=== PATIENT | female | born 1940 | race Caucasian/White ===

== ENCOUNTER → 2016-08-29 | Outpatient (CLI) | payer MEDICARE, BC ==
[~2016-08-29] MED LIST: AMOXICILLIN 8751 TAB PO; ASPIRIN; ASPIRIN E.C. 8181 MG PO; BETAPACE 80MG80 MG PO; BUFFERED ASPIRIN; CALCIUM CARBON500 M1 PO; CENTRUM SILVER1 TA1 PO; CEPHALEXIN500 M1 PO; COUMADIN 22.5 MG/TAB PO; COUMADIN 5MG5 MG/TAB PO; FISH OIL1 IU PO; FISH OIL1000 MG PO; FLAGYL500 MG PO; K-DUR 2020 MEQ PO; LASIX 20MG TABL20 MG PO; LEVAQUIN 5500 MG/TA1 PO; LISINOPRIL10 MG PO; LOPRESSOR100 MG PO; LORTAB 5/500 501 TAB PO; PREDNISONE20 MG PO; PRINIVIL10 MG PO; RT ALBUTER2.5 MG/0.5 IH; SOTALOL; SUP; WARFARIN SOD5 MG PO; ZOCOR; ZOCOR 40MG40 MG PO
== END ==
LOC: MC.RAD 11:04
DX: Z12.31 Encounter for screening mammogram for malignant neoplasm of breast (principal)

== ENCOUNTER 2017-09-26 12:15 | Observation (INO) | payer MEDICARE, BC ==
[~2017-09-26] VITALS: Ht 157.5 cm; Wt 88.0 kg
[2017-09-26 13:04] LABS: BASO # 0.1 (0.0-0.2); BASO % 0.8 % (0.0-2.0); EOS # 0.2 (0.0-0.7); EOS % 2.7 % (0-4.0); GRAN # 3.6 (1.4-6.5); GRAN % 59.9 % (42.2-75.2); HEMATOCRIT 43.1 % (37.0-47.0); HEMOGLOBIN 14.2 g/dl (12.5-16.0); LYMPH # 1.7 (1.2-3.4); LYMPH % 28.4 % (20.0-51.0); MEAN CELL VOLUME 94 fl (80.0-100.0); MEAN CORPUSCULAR HEMOGLOBIN 31 pg (27.0-31.0); MEAN CORPUSCULAR HGB CONC 33 g/dl (33.0-37.0); MEAN PLATELET VOLUME 11.1 fl (7.4-10.4); MONO # 0.5 (0.1-0.6); PLATELET COUNT 220 K/mm3 (130-400); RED BLOOD COUNT 4.59 M/mm3 (4.10-5.30); REDCELL DISTRIBUTION WIDTH-CV 13.6 % (11.5-14.5)
[2017-09-26 13:10] LABS: INR 1.6 (0.8-3.0); PROTHROMBIN TIME 18.4 SECONDS (9.7-12.8)
[2017-09-26 13:17] LABS: ALBUMIN 3.9 gm/dL (3.5-5.0); BILIRUBIN,TOTAL 0.4 mg/dL (0.0-1.0); C-REACTIVE PROTEIN 1.1 mg/dL (0.0-0.9); CREATININE, serum 0.94 mg/dL (0.52-1.25); POTASSIUM 4.1 mmol/L (3.4-5.0); TOTAL PROTEIN 7.2 gm/dL (6.4-8.2)
[2017-09-26 17:41] VITALS: BP 179/72; PULSE 51; TEMP 98.3
[2017-09-26 20:03] VITALS: BP 152/59; PULSE 51; TEMP 98.2
[2017-09-26 23:49] VITALS: BP 114/51; PULSE 49; TEMP 97.9
[2017-09-27 03:32] VITALS: BP 133/65; PULSE 50; TEMP 98.4
[2017-09-27 07:04] LABS: TSH w REFLEX 6.15 uIU/mL (0.465-4.680)
[2017-09-27 07:15] VITALS: BP 128/78; PULSE 52; TEMP 98.4
[2017-09-27 11:30] VITALS: BP 138/67; PULSE 50; TEMP 98.5
[2017-09-27] MEDS ORDERED: XARELTO20 MG PO (13:10)
[2017-09-27] MEDS ORDERED: ZESTRIL 10MG10 MG PO (13:12)
== END 2017-09-27 14:37 | disposition home or self-care (01) ==
LOC: COL.ER 12:15 → MEDICAL 15:14
PROVIDERS: Family Medicine; Internal Medicine
DX: G45.9 Transient cerebral ischemic attack, unspecified (principal); I48.0 Paroxysmal atrial fibrillation; Z79.01 Long term (current) use of anticoagulants; I10 Essential (primary) hypertension; E78.5 Hyperlipidemia, unspecified; Z87.891 Personal history of nicotine dependence; Z88.2 Allergy status to sulfonamides; Z88.8 Allergy status to other drugs, medicaments and biological substances; Z88.6 Allergy status to analgesic agent; Z91.041 Radiographic dye allergy status; G50.0 Trigeminal neuralgia; Z95.0 Presence of cardiac pacemaker; Z80.1 Family history of malignant neoplasm of trachea, bronchus and lung
CPT/HCPCS: G0378

== ENCOUNTER → 2017-11-22 | Outpatient (CLI) | payer MEDICARE, BC ==
[~2017-11-22] MED LIST changes: +XARELTO20 MG PO; +ZESTRIL 10MG10 MG PO
== END ==
LOC: MC.RAD 10:07
DX: Z12.31 Encounter for screening mammogram for malignant neoplasm of breast (principal); N64.89 Other specified disorders of breast

== ENCOUNTER → 2018-11-28 | Outpatient (CLI) | payer MEDICARE, BC | LOC: MC.RAD 11:15 | DX: Z12.31 Encounter for screening mammogram for malignant neoplasm of breast (principal) ==

== ENCOUNTER 2019-02-14 14:58 | Emergency (ER) | payer MEDICARE, BC ==
[~2019-02-14] VITALS: Ht 154.9 cm; Wt 77.3 kg
[2019-02-14 15:30] VITALS: TEMP 98.7
[2019-02-14 16:55] LABS: BASO % 0.4 % (0.0-2.0); EOS # 0.1 (0.0-0.7); EOS % 0.6 % (0-4.0); GRAN # 7.7 (1.4-6.5); HEMOGLOBIN 14.6 g/dl (12.5-16.0); LYMPH # 1.7 (1.2-3.4); LYMPH % 15.7 % (20.0-51.0); MEAN CELL VOLUME 91 fl (80.0-100.0); MEAN CORPUSCULAR HEMOGLOBIN 31 pg (27.0-31.0); MEAN CORPUSCULAR HGB CONC 34 g/dl (33.0-37.0); MEAN PLATELET VOLUME 10.8 fl (7.4-10.4); MONO # 1.1 (0.1-0.6); MONO % 9.9 % (1.7-9.3); PLATELET COUNT 245 K/mm3 (130-400); RED BLOOD COUNT 4.71 M/mm3 (4.10-5.30); REDCELL DISTRIBUTION WIDTH-CV 13.7 % (11.5-14.5)
[2019-02-14 17:07] LABS: ALANINE AMINOTRANSFERASE 67 U/L (9-52); ALBUMIN 3.9 gm/dL (3.5-5.0); ALKALINE PHOSPHATASE 49 U/L (50-136); ANION GAP 9 mmol/L (7-16); AST,SGOT 69 U/L (15-37); BILIRUBIN,TOTAL 0.5 mg/dL (0.0-1.0); BLOOD UREA NITROGEN 11 mg/dL (7-17); C-REACTIVE PROTEIN 7.6 mg/dL (0.0-0.9); CALCIUM 9.4 mg/dL (8.4-10.2); CARBON DIOXIDE 29 mmol/L (22-30); CHLORIDE 100 mmol/L (98-107); CREATININE, serum 0.83 (0.52-1.25); GLUCOSE 107 mg/dL (74-106); POTASSIUM 4.5 mmol/L (3.4-5.0); SODIUM 137 mmol/L (137-145); TOTAL PROTEIN 7.4 gm/dL (6.4-8.2)
[2019-02-14 17:17] LABS: TROPONIN-I < 0.012 ng/mL (0.000-0.035)
[2019-02-14 17:38] LABS: COLLECTION METHOD CLEAN CATCH
[2019-02-14 17:52] LABS: PH 6 (5-8); URINE APPEARANCE Hazy; URINE BACTERIA None Seen /hpf; URINE BILIRUBIN Negative (NEGATIVE); URINE BLOOD Negative (NEGATIVE); URINE COLOR Yellow; URINE GLUCOSE Negative (NEGATIVE); URINE KETONE Negative (NEGATIVE); URINE LEUKOCYTE ESTERASE 2+ (NEGATIVE); URINE NITRATE Negative (NEGATIVE); URINE PROTEIN(semi-quant) Negative (NEGATIVE); URINE UROBILINOGEN Negative (NEGATIVE)
[2019-02-14] MEDS ORDERED: OMNICEF 300MG300 MG PO (19:17)
[2019-02-14] MEDS ORDERED: ZOFRAN 4MG T4 MG/TAB PO (19:18)
[2019-02-14 20:31] VITALS: BP 149/68; PULSE 67
== END 2019-02-14 20:31 | disposition home or self-care (01) ==
LOC: COL.ER 14:58
PROVIDERS: Emergency Medicine
DX: N12 Tubulo-interstitial nephritis, not specified as acute or chronic (principal); I10 Essential (primary) hypertension
CPT/HCPCS: J0696; J1200; J2405; J7030; Q9967

== ENCOUNTER → 2020-12-29 | Outpatient (CLI) | payer MEDICARE, BC ==
[~2020-12-29] MED LIST changes: +OMNICEF 300MG300 MG PO; +ZOFRAN 4MG T4 MG/TAB PO
== END ==
LOC: COL.RAD 12:53
DX: N30.21 Other chronic cystitis with hematuria (principal)

== ENCOUNTER 2021-10-08 10:04 | Emergency (ER) | payer MEDICARE, BC ==
[~2021-10-08] VITALS: Ht 154.9 cm; Wt 79.5 kg
[~2021-10-08 10:04] MED LIST changes: +CALCIUM 600 MG1 EAC1 PO; +CLEOCIN HC150 MG/CAP PO; +LIPITOR 40MG TA40 MG PO; +ZESTRIL 20MG TA20 MG PO
[2021-10-08 10:05] VITALS: TEMP 98.6
[2021-10-08 10:32] LABS: BASO # 0.1 K/mm3 (0.0-0.2); BASO % 0.5 % (0.0-2.0); EOS # 0.1 K/mm3 (0.0-0.7); EOS % 0.9 % (0.0-4.0); GRAN # 8.4 K/mm3 (1.4-6.5); GRAN % 84.3 % (42.2-75.2); HEMATOCRIT 39.7 % (37.0-47.0); HEMOGLOBIN 13.2 g/dl (12.5-16.0); LYMPH % 9.6 % (20.0-51.0); MEAN CELL VOLUME 92 fl (80.0-100.0); MEAN CORPUSCULAR HEMOGLOBIN 31 pg (27-31); MEAN CORPUSCULAR HGB CONC 33 g/dl (33.0-37.0); MEAN PLATELET VOLUME 10.9 fl (7.4-10.4); MONO # 0.4 K/mm3 (0.1-0.6); MONO % 4.3 % (1.7-9.3); PLATELET COUNT 251 K/mm3 (130-400); RED BLOOD COUNT 4.32 M/mm3 (4.10-5.30); REDCELL DISTRIBUTION WIDTH-CV 14.6 % (11.5-14.5)
[2021-10-08 10:40] LABS: INR 1.4 (0.8-3.0); PROTHROMBIN TIME 15.7 SECONDS (9.7-12.8)
[2021-10-08 10:42] LABS: PARTIAL THROMBOPLASTIN TIME 30.7 SECONDS (26.0-37.0)
[2021-10-08 10:50] LABS: ALBUMIN 3.5 gm/dL (3.4-4.8); BILIRUBIN,TOTAL 0.6 mg/dL (0.2-1.2); CALCIUM 9.2 mg/dL (8.4-10.2); CREATININE, serum 0.83 mg/dL (0.57-1.11); POTASSIUM 4.2 mmol/L (3.5-4.5); TOTAL PROTEIN 6.7 gm/dL (6.2-8.1)
[2021-10-08 10:56] LABS: TROPONIN-I 0.027 ng/mL (0.00-0.033)
[2021-10-08] MEDS ORDERED: ZOFRAN ODT4 MG PO (13:19)
[2021-10-08 13:23] VITALS: BP 168/89; PULSE 74
== END 2021-10-08 13:23 | disposition home or self-care (01) ==
LOC: COL.ER 10:04
PROVIDERS: Family Medicine
DX: R20.2 Paresthesia of skin (principal); R11.0 Nausea
CPT/HCPCS: J2405

== ENCOUNTER 2022-01-14 08:24 | Day surgery (SDC) | payer MEDICARE, BC ==
[~2022-01-14] VITALS: Ht 154.9 cm; Wt 77.7 kg
[2022-01-14] VITALS (9 sets, daily range): BP systolic 107–187; BP diastolic 81–96; PULSE 68–72; TEMP 98.4
[~2022-01-14 08:24] MED LIST changes: -CENTRUM SILVER1 TA1 PO; +CENTRUM SILVER1 TAB PO; +ZOFRAN ODT4 MG PO
[2022-01-14 09:36] LABS: BASO # 0.1 K/mm3 (0.0-0.2); BASO % 0.5 % (0.0-2.0); EOS # 0.2 K/mm3 (0.0-0.7); HEMATOCRIT 40.6 % (37.0-47.0); HEMOGLOBIN 13.5 g/dl (12.5-16.0); LYMPH # 1.9 K/mm3 (1.2-3.4); LYMPH % 20.6 % (20.0-51.0); MEAN CELL VOLUME 91 fl (80.0-100.0); MEAN CORPUSCULAR HEMOGLOBIN 30 pg (27-31); MEAN CORPUSCULAR HGB CONC 33 g/dl (33.0-37.0); MEAN PLATELET VOLUME 10.7 fl (7.4-10.4); MONO # 1.1 K/mm3 (0.1-0.6); MONO % 11.6 % (1.7-9.3); PLATELET COUNT 266 K/mm3 (130-400); RED BLOOD COUNT 4.46 M/mm3 (4.10-5.30); REDCELL DISTRIBUTION WIDTH-CV 14.4 % (11.5-14.5)
[2022-01-14 09:39] LABS: PROTHROMBIN TIME 11.9 SECONDS (9.7-12.8)
[2022-01-14 09:51] LABS: CALCIUM 9.1 mg/dL (8.4-10.2); CREATININE, serum 0.78 mg/dL (0.57-1.11); POTASSIUM 4.1 mmol/L (3.5-4.5)
--- NOTE | 2022-01-14 11:27 | NUR ---
See merge for all medication administration, vital signs, and intervention times.
--- NOTE | 2022-01-14 12:35 | NUR ---
Pt is back to [facility] after generator-pocket revision. Pt is relaxed, awake and alert, pwd with reg and unlabored respirations. incision dressing is clean and dry, ice pack applied. lunch ordered. son at bs. call light in reach.
--- NOTE | 2022-01-14 15:00 | NUR ---
Pt has recovered well, after revision of generator pocket. PT has been resting comfortably, has had some lunch, and is now up, dressed and has ambulated to bathroom and back to her room with steady gait and no reports of dizziness/lightheadedness. dressing to incision site remains clean dry and intact. I have reviewed dc/fu instructions with pt several times; she and her son verbalize understanding. Pt is escorted to exit via wheelchair.
== END 2022-01-14 15:37 | disposition home or self-care (01) ==
LOC: COL.CAR 08:24
PROVIDERS: Internal Medicine Cardiovascular Disease
DX: T82.198A Other mechanical complication of other cardiac electronic device, initial encounter (principal); Z87.891 Personal history of nicotine dependence
CPT/HCPCS: J2250; J3010; J3370; J7030; J7050

== ENCOUNTER 2023-07-15 13:56 | Emergency (ER) | payer MEDICARE, BC ==
[~2023-07-15] VITALS: Ht 157.5 cm; Wt 77.3 kg
[2023-07-15 13:56] VITALS: TEMP 97.4
[2023-07-15] MEDS ORDERED: NS 1,000 ML IV ONE (14:30)
[2023-07-15 14:36] LABS: BASO # 0.1 K/mm3 (0.0-0.2); BASO % 0.4 % (0.0-2.0); EOS % 0.2 % (0.0-4.0); GRAN # 9.4 K/mm3 (1.4-6.5); GRAN % 84.3 % (42.2-75.2); HEMATOCRIT 43.1 % (37.0-47.0); HEMOGLOBIN 14.5 g/dl (12.5-16.0); LYMPH # 1.2 K/mm3 (1.2-3.4); LYMPH % 10.5 % (20.0-51.0); MEAN CELL VOLUME 93 fl (80.0-100.0); MEAN CORPUSCULAR HEMOGLOBIN 31 pg (27-31); MEAN CORPUSCULAR HGB CONC 34 g/dl (33.0-37.0); MEAN PLATELET VOLUME 12.8 fl (7.4-10.4); MONO # 0.5 K/mm3 (0.1-0.6); MONO % 4.1 % (1.7-9.3); PLATELET COUNT 420 K/mm3 (130-400); RED BLOOD COUNT 4.63 M/mm3 (4.10-5.30); REDCELL DISTRIBUTION WIDTH-CV 14.6 % (11.5-14.5)
[2023-07-15 15:13] LABS: INR 1.8 (0.8-3.0); PROTHROMBIN TIME 18.9 SECONDS (9.7-12.8)
[2023-07-15] MEDS ORDERED: methylPREDNISolone Sod Succ 125 MG/2 ML VIAL IV ONE (15:15)
[2023-07-15] MEDS ORDERED: diphenhydrAMINE 50 MG/ML 1 ML VIAL IV ONE (15:15)
[2023-07-15 15:16] LABS: PARTIAL THROMBOPLASTIN TIME 32.7 SECONDS (26.0-37.0)
[2023-07-15 15:23] LABS: ALBUMIN 3.5 gm/dL (3.4-4.8); BILIRUBIN,TOTAL 0.7 mg/dL (0.2-1.2); CALCIUM 9.5 mg/dL (8.4-10.2); CREATININE, serum 0.86 mg/dL (0.57-1.11); POTASSIUM 4.3 mmol/L (3.5-4.5); TOTAL PROTEIN 7.2 gm/dL (6.2-8.1)
[2023-07-15 15:33] LABS: TROPONIN-I 0.01 ng/mL (0.00-0.033)
[2023-07-15] MEDS ORDERED: Iohexol 350 - 100 ML VIAL IV ONE (15:54)
[2023-07-15] MEDS ORDERED: NS 100 ML IV SCH (15:55)
[2023-07-15 15:59] LABS: COLLECTION METHOD IN
[2023-07-15 16:36] LABS: URINE APPEARANCE Clear (CLEAR/HAZY); URINE BLOOD Negative (NEGATIVE); URINE COLOR Yellow (YELLOW); URINE GLUCOSE Negative (NEGATIVE); URINE KETONE Negative (NEGATIVE); URINE NITRATE Negative (NEGATIVE); URINE PROTEIN(semi-quant) Negative (NEGATIVE); URINE RBC None Seen /hpf (0-2); URINE UROBILINOGEN 0.2 E.U/dL (0.2-1.0)
[2023-07-15 16:37] LABS: SQUAMOUS EPITHELIAL 0-2 /hpf (0-10)
[2023-07-15 18:30] VITALS: BP 145/89; PULSE 79
== END 2023-07-15 19:00 | disposition short-term general hospital (02) ==
LOC: COL.ER 13:56
PROVIDERS: Emergency Medicine
DX: I63.541 Cerebral infarction due to unspecified occlusion or stenosis of right cerebellar artery (principal); I63.231 Cerebral infarction due to unspecified occlusion or stenosis of right carotid arteries; G81.94 Hemiplegia, unspecified affecting left nondominant side; Z79.01 Long term (current) use of anticoagulants
CPT/HCPCS: A4314; J1200; J2930; J7030; Q9967